=== PATIENT | male | born 1980 ===

== ENCOUNTER → 2023-09-10 13:31 | Outpatient (CLI) | payer OTHER, SELFPAY ==
--- NOTE | 2023-09-10 13:39 | DI.RAD.S_ITS ---
PROCEDURE: XR KNEE RT 3V INDICATIONS: RIGHT KNEE PAIN TECHNIQUE: 3 views of the knee were acquired. COMPARISON: None. FINDINGS: Bones: No fractures or dislocations. No suspicious bony lesions. Moderate medial lateral compartmental joint space narrowing Soft tissues: Moderate joint effusion. No suspicious soft tissue calcifications. IMPRESSION: Joint space narrowing and moderate joint effusion Approved by: Reg Silverman M.D. on 09/10/2023 at 14:35
== END ==
LOC: RAD 13:37
PROVIDERS: PCP Internal Medicine; Referring Provider Physician Assistant; Visit Provider Physician Assistant
DX: M23.91 Unspecified internal derangement of right knee (principal); M25.461 Effusion, right knee
CPT/HCPCS: 73562